=== PATIENT | female | born 1985 | race Caucasian/White ===

== ENCOUNTER 2016-12-08 11:20 | Emergency (ER) | payer BC, OTHER ==
[~2016-12-08] VITALS: Ht 165.1 cm; Wt 122.8 kg
[2016-12-08 11:22] VITALS: BP 143/75; PULSE 74; TEMP 36.8; O2SAT 98; Ht 165.1 cm; Wt 122.8 kg
[2016-12-08] MEDS ORDERED: BUSP-8 PO (11:27)
[2016-12-08] MEDS ORDERED: SERT25TA PO (11:27)
[2016-12-08] MEDS ORDERED: ANSHCCR/ TOP (11:40)
--- NOTE | 2016-12-08 11:45 | EMERGENCY ROOM VISIT NOTE ---
ED Visit Note First contact with patient: 11:27 CHIEF COMPLAINT: Bug bite left forearm HISTORY OF PRESENT ILLNESS: This 31-year-old female presents the ER with chief complaint of bug bites on her left forearm which she noticed 3 days ago. She states they are itchy and now are getting painful. The patient denies any purulent drainage or any redness surrounding the bug bites or any streaking up her arm. She is not sure what bit her arm. She states there is a possibility it could be flea bites. The patient has not taken anything for pain or for the itch. She does take Zyrtec daily. REVIEW OF SYSTEMS: 6 system review was performed and was negative unless stated otherwise in history of present illness. PMH: The patient is healthy; allergic rhinitis, cholecystectomy, SOCIAL HISTORY: Patient lives with her family. The patient denies any tobacco or alcohol use. PHYSICAL EXAM: Vital Signs: Were reviewed Reviewed Nurse's notes. GEN.: 31 year-old obese white female appears in no acute distress. MENTAL STATUS: Alert and oriented 3. SKIN: On the left forearm there are 3 small erythematous raised macules with a central punctate franc on each lesion. There is no surrounding erythema or streaking up the arm. There is no purulent drainage. LEFT AXILLA: No lymphadenopathy noted. EMERGENCY COURSE: The patient was evaluated. She currently does not have a family physician and recently moved to the area. I had the housing case manager gave her information on family physicians he will take her insurance and who are accepting new patients. The patient was discharged home in stable condition. DIAGNOSIS: Insect bites left forearm DISCHARGE INSTRUCTIONS & TREATMENT: Ibuprofen 600 mg every 6 hours with food for pain. Apply hydrocortisone cream to affected area as prescribed. Take Benadryl 25 mg every 6 hours as needed for itch. This may make you drowsy. Any signs of infection, seek further medical attention. Current/Historical Medications Scheduled Buspirone Hcl (Buspirone Hcl), 20 MG PO DAILY Hydrocortisone (Hydrocortisone 2.5%), 1 APPLN TOP BID Sertraline (Zoloft), 25 MG PO DAILY Allergies Coded Allergies: No Known Allergies (Unverified , 12/08/16) Vital Signs Date Time Temp Pulse Resp B/P Pulse Ox O2 Delivery O2 Flow Rate FiO2 12/08/16 11:22 36.8 74 18 143/75 98 Room Air Departure Information Impression Primary Impression: Insect bites Dispostion Home / Self-Care Condition GOOD Prescriptions Hydrocortisone (Hydrocortisone 2.5%) 30 Gm Cr 1 APPLN TOP BID for 7 Days, #30 GM Prov: Aileen Leal PA-C 12/08/16 Referrals No Doctor, Assigned (PCP) Forms HOME CARE DOCUMENTATION FORM, IMPORTANT VISIT INFORMATION Patient Instructions My [facility] Additional Instructions Ibuprofen 600 mg every 6 hours with food for pain. Apply hydrocortisone cream to affected area as prescribed. Take Benadryl 25 mg every 6 hours as needed for itch. This may make you drowsy. Any signs of infection, seek further medical attention.
== END 2016-12-08 11:45 | disposition home or self-care (01) ==
LOC: C.EDB 11:21 → C.EDD 11:45
DX: S50.862A Insect bite (nonvenomous) of left forearm, initial encounter (principal); W57.XXXA Bitten or stung by nonvenomous insect and other nonvenomous arthropods, initial encounter; Z79.899 Other long term (current) drug therapy; Z90.49 Acquired absence of other specified parts of digestive tract

== ENCOUNTER → 2018-01-15 | Outpatient (CLI) | payer OTHER ==
[~2018-01-15] MED LIST: ANSHCCR/ TOP; BUSP-8 PO; SERT25TA PO
== END | disposition home or self-care (01) ==
LOC: C.PAPS 14:47
PROVIDERS: ATTEND Obstetrics & Gynecology
DX: Z01.419 Encounter for gynecological examination (general) (routine) without abnormal findings (principal)